=== PATIENT | female | born 1975 | race Caucasian/White ===

== ENCOUNTER 2023-01-05 10:37 | Day surgery (SDC) | payer MEDICARE, SELFPAY ==
[2022-12-31 08:21] VITALS: BMI 33.1
[2023-01-05 11:41] VITALS: BP 133/81; PULSE 89; RESP 16; TEMP 36.2; O2SAT 99; BMI 33.1
--- NOTE | 2023-01-05 12:16 | PM.PREOP ---
Pre-operative Note COVID-19 COVID-19 status: Not tested Interval Note History & Physical reviewed/Exam performed by Physician: Yes Changes to H&P: No ASA Class (for procedural sedation): III
[2023-01-05] MEDS: LACTATED RINGERS 1,000 ML 42 ML IV (12:17)
[2023-01-05] MEDS: CEFAZOLIN 2 GM/100 ML PREMIX 100 ML IV (12:50)
[2023-01-05] MEDS: BUPIVACAINE 0.5% (PF) 30 ML, EPINEPHrine 0.15 MG INJ (14:01)
[2023-01-05 14:15] VITALS: BP 144/95; PULSE 86; RESP 15; TEMP 36.6; O2SAT 98
--- NOTE | 2023-01-05 14:20 | P.OP_ITS ---
Operative Date/Time/Diagnoses Date of procedure: 01/05/23 Time of procedure: 14:20 Pre-op diagnosis: Umbilical hernia Post-op diagnosis: same Procedure & Clinicians Procedure: Open umbilical hernia repair with mesh Same procedure as scheduled: Yes Surgeon: Jong Griffin Anesthesia Type: General Operative Notes Procedure in detail: Ancef was administered. The patient was brought to the operating room, placed on the table in the supine position and general endotracheal anesthesia was induced. The abdomen was prepped and draped in the usual fashion. A time-out was performed. A 6 cm curvilinear incision was made inferior to the umbilicus. The hernia sac was dissected free from the surrounding subcutaneous adipose tissue. There appeared to be a rather large fascial defect just above the umbilical stalk small defect at the umbilical stalk. The thin bridge of tissue between them was divided with scissors. The hernia appeared to contain omentum. The hernia sac was dissected free from the fascial ring and allowed to drop back down into the abdomen. The fascia was then closed in the midline with multiple interrupted 0 Ethibond sutures. The subcutaneous adipose tissue was cleared off of the anterior sheath circumferentially about 2 cm in each direct ion. A piece of heavy weight polypropylene mesh was trimmed to fit over the fascial closure and secured with Tisseel. Once the Tisseel was dried the umbilical skin was tacked down to the deep adipose tissue with a single 3-0 Vicryl stitch. The skin was closed with multiple interrupted 3-0 Vicryl dermal sutures followed by a running 4 Monocryl subcuticular closure. Steri-Strips were applied and an abdominal binder was applied. EBL: 10 mL Post-operative Condition: stable Disposition: PACU
[2023-01-05 14:21] VITALS: BP 138/95; PULSE 86; RESP 15; TEMP 36.6; O2SAT 97
[2023-01-05] MEDS: OXYCODONE IR 5 MG TABLET PO ×2 (14:27→14:57)
[2023-01-05] MEDS: ACETAMINOPHEN 325 MG TABLET 650 MG PO (14:27)
[2023-01-05] MEDS: ONDANSETRON 4 MG/2 ML INJ IV (14:27)
[2023-01-05 15:00] VITALS: BP 148/76; PULSE 88; RESP 16; TEMP 36.1; O2SAT 97
== END 2023-01-05 15:08 | disposition home or self-care (01) ==
PROVIDERS: Referring Provider Surgery; Visit Provider Surgery
PROC: (CPT 49591; principal; 2023-01-05 12:15)
DX: K42.9 Umbilical hernia without obstruction or gangrene (principal)
CPT/HCPCS: 49591; 36415; C1781; J0171; J0690; J1100; J2405; J2704; J3010

== ENCOUNTER 2023-02-25 10:59 | Day surgery (SDC) | payer MEDICARE, SELFPAY ==
--- NOTE | 2023-02-25 | PATH_ITS ---
[facility] Accession Number: [id number] No. of containers..02 Tissue . 01 Material submitted: . PART A: gastrointestinal site - ANTRAL BIOPSIES PART B: esophagus, E-G Junction - GE JUNCTION BIOPSIES . 01 Diagnosis: A. Gastric Antrum, Biopsy: Gastric antral mucosa with mild features of reactive gastropathy. Negative for Helicobacter organisms by immunohistochemistry. Negative for intestinal metaplasia. Negative for dysplasia or malignancy. . B. Gastroesophageal Junction, Biopsies: Squamocolumar junctional mucosa with focal specialized intestinal metaplasia; please see comment. Negative for dysplasia or malignancy. [facility] 03/12/2023 1633 Local . 01 Comment: B. The histologic findings in the gastroesophageal junction biopsy would be consistent with Aguila's esophagus in the appropriate endoscopic setting. . 01 Electronically signed: . Robert Alvarez MD, PhD, Pathologist NPI- [id number] . 01 Gross description: . Part A: ANTRAL BIOPSIES: Received in formalin is multiple fragment(s) of khan, soft tissue measuring 1.0 x 0.5 x 0.1 cm in aggregate submitted entirely in 1 cassette(s) Part B: GE JUNCTION BIOPSIES: Received in formalin is 3 fragment(s) of khan, soft tissue measuring 0.3 x 0.2 x 0.1 cm to 0.2 x 0.1 x 0.1 cm submitted entirely in 1 cassette(s) /AA 02/26/2023 0455 Local . 01 Microscopic: . A. An immunohistochemical stain was performed to evaluate for Helicobacter organisms and is negative. The control stain showed appropriate reactivity. . * This test was developed and its performance characteristics determined by [facility]. It has not been cleared or approved by the U.S. Food and Drug Administration. The FDA has determined that such clearance or approval is not necessary. This test is used for clinical purposes. It should not be regarded as investigational or for research. . 01 Pathologist provided ICD-10: K29.70, K22.70 . 01 CPT . 830766, 955674, L30595 Specimen Comment: A courtesy copy of this report has been sent to [phone] Performed at: 01 [facility] [address] [place] [address] [address] [facility], [place], [place] [id number] MD Theodore Pruitt MD Phone: [phone]
[2023-02-25] MEDS: LACTATED RINGERS 1,000 ML 120 ML IV (11:53)
[2023-02-25 11:58] VITALS: BP 128/90; PULSE 70; RESP 18; TEMP 36.9; O2SAT 98; BMI 33.2
--- NOTE | 2023-02-25 12:45 | P.HP_ITS ---
History of Present Illness History of Present Illness Date Patient Seen: 02/25/23 Time Patient Seen: 12:45 Chief complaint: SDC Narrative: Leigh is a 47-year-old transgender woman who presents for an EGD and colonoscopy for GERD and history of colon polyps. [facility] Medical History (Updated 02/25/23 @ 12:47 by Jong Griffin MD) Intersexual Schizophrenia PTSD (post-traumatic stress disorder) COPD (chronic obstructive pulmonary disease) CAD (coronary artery disease) Bipolar 2 disorder Asthma GERD (gastroesophageal reflux disease) Surgical History History of surgery Hx of breast surgery Family History Father Heart disease Diabetes mellitus Hypertension Mother Hypertension Cancer Sister Cancer Grandmother Cancer Social History household members: significant other Smoking Status: Current some day smoker alcohol intake: current Meds Home Medications and Allergies Home Medications Medication Instructions Recorded Confirmed Type estradiol valerate 20 mg/mL See Rx Instructions .Route .COMPLEX 12/23/22 02/25/23 History intramuscular oil nitroglycerin 0.4 mg sublingual 0.4 mg sublingual Q5-15M PRN Chest 12/23/22 02/25/23 History tablet Pain omeprazole 20 mg capsule,delayed 20 mg PO DAILY 12/23/22 02/25/23 History release ibuprofen 800 mg tablet 800 mg PO Q8H PRN pain #20 tabs 01/25/23 02/25/23 Rx Allergies Allergy/AdvReac Type Severity Reaction Status Date / Time No Known Drug Allergies Allergy Verified 02/25/23 11:53 Exam Vital Signs (past 8 hours): - 02/25/23 11:58 Temperature 98.4 F Pulse Rate 70 Respiratory Rate 18 Blood Pressure 128/90 Pulse Oximetry 98 Const General: No acute distress Resp Effort & Inspection: normal respiratory effort Assessment & Plan Assessment and plan (1) Colon cancer screening: Status: Acute (2) GERD (gastroesophageal reflux disease): Status: Acute Plan Leigh is a 47-year-old woman here for EGD and colonoscopy for GERD and colon cancer screening. We reviewed the risks and benefits of EGD and colonoscopy and she would like to proceed.
[2023-02-25 13:23] VITALS: BP 110/80; PULSE 69; RESP 16; TEMP 36.9; O2SAT 100
--- NOTE | 2023-02-25 13:28 | P.OP.EGD&C_ITS ---
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 A bite blocked was placed and monitors were attached to the patient. The patient was positioned in the left lateral decubitus position. Sedation was administered. Once the patient was sedated the endoscope was inserted through the bite block and passed through the esophagus and stomach and into the duodenum. Abnormalities were seen in the duodenal. We then withdrew the scope into the stomach. There was some mild antritis and random biopsies were taken from the antrum. The endoscope was retroflexed and a small hiatal hernia was observed. The endoscope was straightned and withdrawn into the esophagus. There was a tongue of salmon- colored mucosa extending about 1 cm up from GE junction. Several biopsies were taken from the GE junction. Findings: Mild antritis and a 1 cm tongue of salmon-colored mucosa extending up from the GE junction Next we repositioned the patient for a colonoscopy. A digital rectal exam was performed and was normal. The colonoscope was inserted and advanced to the cecum. The appendiceal orifice was identified and photographed. The scope was slowly withdrawn over greater than 6 minutes. No abnormalities were found. The scope was retroflexed in the rectum and no other abnormalities were seen. Findings: Normal colon EBL: 5 mL Scope withdrawal time: 9 minutes Sedation minutes: 26 minute Post-procedure Recommendations: Colonscopy in 10 years Disposition: PACU
[2023-02-25 13:29] VITALS: BP 121/65; PULSE 74; RESP 16; O2SAT 99
[2023-02-25] MEDS: LACTATED RINGERS 1,000 ML 42 ML IV (13:47)
== END 2023-02-25 13:47 | disposition home or self-care (01) ==
PROVIDERS: Referring Provider Surgery; Visit Provider Surgery
PROC: 0DJ08ZZ Inspection of Upper Intestinal Tract, Via Natural or Artificial Opening Endoscopic (ICD-10-PCS; CPT 43235; principal; 2023-02-25 12:45)
PROC: 0DJD8ZZ Inspection of Lower Intestinal Tract, Via Natural or Artificial Opening Endoscopic (ICD-10-PCS; CPT 45378; 2023-02-25 12:45)
DX: Z12.11 Encounter for screening for malignant neoplasm of colon (principal); Z86.010 Personal history of colon polyps; K21.9 Gastro-esophageal reflux disease without esophagitis; K29.50 Unspecified chronic gastritis without bleeding; K44.9 Diaphragmatic hernia without obstruction or gangrene; K31.9 Disease of stomach and duodenum, unspecified; K22.70 Barrett's esophagus without dysplasia
CPT/HCPCS: 43239; G0105